=== PATIENT | male | born 1985 | race American Indian/Alaskan Native ===

== ENCOUNTER 2016-07-16 11:08 | Emergency (ER) | payer OTHER ==
[2016-07-16 12:05] VITALS: BP 116/70
[2016-07-16] MEDS ORDERED: TORADOL IM ONE (15:34)
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
== END 2016-07-16 16:04 | disposition home or self-care (01) ==
LOC: ED 11:08
DX: R51 Headache (principal); M54.2 Cervicalgia; M54.9 Dorsalgia, unspecified; J45.909 Unspecified asthma, uncomplicated; M19.90 Unspecified osteoarthritis, unspecified site; F17.200 Nicotine dependence, unspecified, uncomplicated; Z91.018 Allergy to other foods
CPT/HCPCS: 96372; 99283; J1885

== ENCOUNTER 2017-06-13 03:03 | Emergency (ER) | payer SELFPAY ==
[2017-06-13 05:06] VITALS: BP 134/66
--- NOTE | 2017-06-13 05:35 | XRay Report ---
FINAL REPORT EXAM: XR SPINE LUMBOSACRAL 2-3V HISTORY: lower back pain TECHNIQUE: Three views of the lumbar spine were obtained. FINDINGS: There is moderate narrowing of the L1-L2 disc with endplate spurring. There is minimal narrowing of the L2-3 disc. The alignment appears normal. There is no evidence of fracture. The SI joints appear normal. The soft tissues well maintained. IMPRESSION: Disc degeneration the upper lumbar spine. No acute injury.
== END 2017-06-13 07:05 ==
LOC: ED 03:03
DX: M54.5 Low back pain (principal); Z53.21 Procedure and treatment not carried out due to patient leaving prior to being seen by health care provider
CPT/HCPCS: 72100

== ENCOUNTER 2017-06-13 10:38 | Emergency (ER) | payer SELFPAY ==
[2017-06-13 11:46] VITALS: BP 124/69
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
== END 2017-06-13 14:47 | disposition home or self-care (01) ==
LOC: ED 10:38
DX: M51.36 Other intervertebral disc degeneration, lumbar region (principal); M19.90 Unspecified osteoarthritis, unspecified site; J45.909 Unspecified asthma, uncomplicated; F17.200 Nicotine dependence, unspecified, uncomplicated; G89.29 Other chronic pain; Z91.018 Allergy to other foods
CPT/HCPCS: 99282